=== PATIENT | female | born 1945 | race Two or more races ===

== ENCOUNTER 2018-02-07 08:03 | Outpatient (CLI) | payer OTHER ==
[~2018-02-07 08:03] MED LIST: FOSAMAX10 MG PO; INDERAL LA80 MG PO; MULTIVITAMIN1 TAB PO; SINGULAIR 5MG5 MG PO
== END 2018-02-07 08:13 | disposition home or self-care (01) ==
LOC: NUCLEAR 08:03
DX: I11.9 Hypertensive heart disease without heart failure (principal)

== ENCOUNTER 2018-10-30 07:47 | Outpatient (CLI) | payer OTHER | END 2018-10-30 07:58 | disposition home or self-care (01) | LOC: TOM 07:47 | DX: K63.5 Polyp of colon (principal) ==

== ENCOUNTER → 2018-11-08 | Outpatient (CLI) | payer OTHER | END | disposition home or self-care (01) | LOC: RAD 501 11:04 | DX: M25.562 Pain in left knee (principal) ==

== ENCOUNTER 2018-11-22 10:02 | Outpatient (CLI) | payer OTHER | END 2018-11-22 10:16 | disposition home or self-care (01) | LOC: MAMO-SONO 10:02 | DX: N60.11 Diffuse cystic mastopathy of right breast (principal); N60.12 Diffuse cystic mastopathy of left breast ==

== ENCOUNTER 2019-01-11 00:57 | Emergency (ER) | payer OTHER ==
[~2019-01-11] VITALS: Ht 154.9 cm; Wt 54.4 kg
[2019-01-11] MEDS ORDERED: DILTIAZEM ER180 M1 (01:04)
== END 2019-01-11 19:05 | disposition home or self-care (01) ==
LOC: ER 00:57
DX: N20.0 Calculus of kidney (principal); R10.31 Right lower quadrant pain

== ENCOUNTER → 2019-01-31 | Outpatient (CLI) | payer OTHER ==
[~2019-01-31] MED LIST changes: +DILTIAZEM ER180 M1
== END | disposition home or self-care (01) ==
LOC: SONOGRAMA 15:09 → RAD 15:09
DX: N20.1 Calculus of ureter (principal); N23 Unspecified renal colic

== ENCOUNTER 2019-03-26 15:15 | Outpatient (CLI) | payer OTHER | END 2019-03-26 15:23 | disposition home or self-care (01) | LOC: RAD 15:15 | DX: H25.012 Cortical age-related cataract, left eye (principal); Z98.42 Cataract extraction status, left eye ==

== ENCOUNTER 2019-08-29 01:36 | Emergency (ER) | payer OTHER ==
[~2019-08-29] VITALS: Ht 154.9 cm; Wt 54.0 kg
[2019-08-29] MEDS ORDERED: TENORMIN25 MG PO (17:32)
== END 2019-08-29 18:06 | disposition home or self-care (01) ==
LOC: ER 01:36 → CPU-OBS 01:41 → ER 01:41
DX: R07.89 Other chest pain (principal); I48.91 Unspecified atrial fibrillation; R00.2 Palpitations

== ENCOUNTER → 2020-05-01 | Outpatient (CLI) | payer OTHER ==
[~2020-05-01] MED LIST changes: +TENORMIN25 MG PO
== END | disposition home or self-care (01) ==
LOC: SONOGRAMA 07:15 → MAMO-SONO 05-02 15:15
PROVIDERS: ATTEND Internal Medicine
DX: E04.1 Nontoxic single thyroid nodule (principal); E03.8 Other specified hypothyroidism

== ENCOUNTER 2020-05-16 22:46 | Emergency (ER) | payer OTHER ==
[~2020-05-16] VITALS: Ht 154.9 cm; Wt 54.4 kg
[2020-05-16] MEDS ORDERED: PLAVIX75 MG (23:17)
[2020-05-16] MEDS ORDERED: TIROSINT25 MCG (23:17)
[2020-05-16] MEDS ORDERED: COZAAR25 MG (23:17)
[2020-05-17] MEDS ORDERED: INTESTINEX680 M2 PO (02:33)
[2020-05-17] MEDS ORDERED: AMOX1TAB5 PO (02:33)
== END 2020-05-17 03:00 | disposition home or self-care (01) ==
LOC: ER 22:46
DX: S61.220A Laceration with foreign body of right index finger without damage to nail, initial encounter (principal); W26.0XXA Contact with knife, initial encounter; Y93.89 Activity, other specified; Y92.090 Kitchen in other non-institutional residence as the place of occurrence of the external cause; Y99.8 Other external cause status

== ENCOUNTER 2020-05-26 10:16 | Outpatient (CLI) | payer OTHER ==
[~2020-05-26 10:16] MED LIST changes: +AMOX1TAB5 PO; +COZAAR25 MG; +INTESTINEX680 M2 PO; +PLAVIX75 MG; +TIROSINT25 MCG
== END 2020-05-26 10:18 | disposition home or self-care (01) ==
LOC: SONOGRAMA 10:16
PROVIDERS: ATTEND Pathology Anatomic Pathology & Clinical Pathology
DX: E04.2 Nontoxic multinodular goiter (principal)

== ENCOUNTER 2021-04-10 08:00 | Outpatient (CLI) | payer OTHER | END 2021-04-10 08:30 | disposition home or self-care (01) | LOC: PPH VACUNA 08:00 | DX: Z23 Encounter for immunization (principal) ==

== ENCOUNTER 2021-09-29 01:07 | Emergency (ER) | payer OTHER ==
[~2021-09-29] VITALS: Ht 157.5 cm; Wt 52.2 kg
== END 2021-09-29 03:43 | disposition home or self-care (01) ==
LOC: ER 01:07
DX: R00.2 Palpitations (principal); Z88.8 Allergy status to other drugs, medicaments and biological substances

== ENCOUNTER 2021-10-18 10:42 | Emergency (ER) | payer OTHER ==
[~2021-10-18] VITALS: Ht 154.9 cm; Wt 55.3 kg
== END 2021-10-18 13:09 | disposition home or self-care (01) ==
LOC: ER 10:42
DX: S20.212A Contusion of left front wall of thorax, initial encounter (principal); W19.XXXA Unspecified fall, initial encounter; Y92.9 Unspecified place or not applicable; I10 Essential (primary) hypertension; Z88.8 Allergy status to other drugs, medicaments and biological substances

== ENCOUNTER 2021-11-02 15:23 | Outpatient (CLI) | payer OTHER | END 2021-11-02 15:28 | disposition home or self-care (01) | LOC: RAD 15:23 | PROVIDERS: ATTEND Internal Medicine | DX: S29.9XXA Unspecified injury of thorax, initial encounter (principal) ==

== ENCOUNTER 2021-11-10 08:00 | Outpatient (CLI) | payer OTHER | END 2021-11-10 08:30 | disposition home or self-care (01) | LOC: PPH VACUNA 08:00 | PROVIDERS: ATTEND Emergency Medicine Pediatric Emergency Medicine | DX: Z23 Encounter for immunization (principal) ==

== ENCOUNTER 2021-11-12 07:50 | Emergency (ER) | payer OTHER ==
[~2021-11-12] VITALS: Ht 154.9 cm; Wt 54.4 kg
[2021-11-12] MEDS ORDERED: CARTIA XT240 MG (08:09)
[2021-11-12] MEDS ORDERED: TENORMIN50 M1 (08:10)
[2021-11-12] MEDS ORDERED: SIMVASTATIN (08:10)
== END 2021-11-12 14:47 | disposition home or self-care (01) ==
LOC: ER 07:50
DX: I48.91 Unspecified atrial fibrillation (principal); I10 Essential (primary) hypertension; Z88.6 Allergy status to analgesic agent; Z88.8 Allergy status to other drugs, medicaments and biological substances

== ENCOUNTER 2022-02-01 08:54 | Outpatient (CLI) | payer OTHER ==
[~2022-02-01 08:54] MED LIST changes: +CARTIA XT240 MG; +SIMVASTATIN; +TENORMIN50 M1
== END 2022-02-01 08:57 | disposition home or self-care (01) ==
LOC: NUCLEAR 08:54
PROVIDERS: ATTEND Internal Medicine
DX: I87.2 Venous insufficiency (chronic) (peripheral) (principal); Z88.6 Allergy status to analgesic agent; Z88.1 Allergy status to other antibiotic agents

== ENCOUNTER 2022-05-10 12:21 | Outpatient (CLI) | payer OTHER | END 2022-05-10 12:31 | disposition home or self-care (01) | LOC: PPH VACUNA 12:21 | PROVIDERS: ATTEND Emergency Medicine Pediatric Emergency Medicine | DX: Z23 Encounter for immunization (principal) ==

== ENCOUNTER 2022-05-20 15:18 | Outpatient (CLI) | payer OTHER | END 2022-05-20 15:24 | disposition home or self-care (01) | LOC: RAD 15:18 | PROVIDERS: ATTEND Physical Medicine & Rehabilitation | DX: M25.562 Pain in left knee (principal) ==

== ENCOUNTER 2022-07-21 13:53 | Outpatient (CLI) | payer OTHER | END 2022-07-21 14:08 | disposition home or self-care (01) | LOC: RAD 13:53 | PROVIDERS: ATTEND Physical Medicine & Rehabilitation | DX: N18.2 Chronic kidney disease, stage 2 (mild) (principal); M25.561 Pain in right knee | CPT/HCPCS: 73721 ==

== ENCOUNTER 2022-10-01 08:58 | Outpatient (CLI) | payer OTHER | END 2022-10-01 09:03 | disposition home or self-care (01) | LOC: NUCLEAR 08:58 | PROVIDERS: ATTEND Internal Medicine | DX: I10 Essential (primary) hypertension (principal); R60.9 Edema, unspecified ==

== ENCOUNTER 2022-10-01 10:31 | Outpatient (CLI) | payer OTHER | END 2022-10-01 10:34 | disposition home or self-care (01) | LOC: MAMO-SONO 10:31 | PROVIDERS: ATTEND Internal Medicine | DX: Z12.31 Encounter for screening mammogram for malignant neoplasm of breast (principal); N64.4 Mastodynia; N60.11 Diffuse cystic mastopathy of right breast ==

== ENCOUNTER 2023-06-13 16:14 | Outpatient (CLI) | payer OTHER | END 2023-06-13 16:23 | disposition home or self-care (01) | LOC: RAD 16:14 | PROVIDERS: ATTEND Internal Medicine | DX: S80.911A Unspecified superficial injury of right knee, initial encounter (principal) ==

== ENCOUNTER 2023-09-23 15:41 | Outpatient (CLI) | payer OTHER | END 2023-09-23 15:44 | disposition home or self-care (01) | LOC: RAD 15:41 | PROVIDERS: ATTEND Physical Medicine & Rehabilitation | DX: M25.561 Pain in right knee (principal) ==

== ENCOUNTER 2023-09-30 08:24 | Outpatient (CLI) | payer OTHER | END 2023-09-30 08:29 | disposition home or self-care (01) | LOC: TOM 08:24 | PROVIDERS: ATTEND Internal Medicine Cardiovascular Disease | DX: J32.8 Other chronic sinusitis (principal); R51.9 Headache, unspecified ==

== ENCOUNTER 2023-11-22 14:31 | Outpatient (CLI) | payer OTHER | END 2023-11-22 14:44 | disposition home or self-care (01) | LOC: MAMO-SONO 14:31 | PROVIDERS: ATTEND Internal Medicine | DX: N64.4 Mastodynia (principal); R92.8 Other abnormal and inconclusive findings on diagnostic imaging of breast; Z12.31 Encounter for screening mammogram for malignant neoplasm of breast ==

== ENCOUNTER 2024-02-13 14:03 | Outpatient (CLI) | payer OTHER | END 2024-02-13 14:11 | disposition home or self-care (01) | LOC: TOM 14:03 | DX: J32.0 Chronic maxillary sinusitis (principal) ==

== ENCOUNTER 2024-02-29 13:10 | Outpatient (CLI) | payer OTHER | END 2024-02-29 13:16 | disposition home or self-care (01) | LOC: TOM 13:10 | PROVIDERS: ATTEND Internal Medicine | DX: J44.1 Chronic obstructive pulmonary disease with (acute) exacerbation (principal) ==

== ENCOUNTER 2024-05-14 15:39 | Outpatient (CLI) | payer OTHER | END 2024-05-14 15:48 | disposition home or self-care (01) | LOC: RAD 15:39 | PROVIDERS: ATTEND Orthopaedic Surgery Adult Reconstructive Orthopaedic Surgery | DX: I11.9 Hypertensive heart disease without heart failure (principal) ==

== ENCOUNTER 2024-07-27 10:01 | Outpatient (CLI) | payer OTHER | END 2024-07-27 10:03 | disposition home or self-care (01) | LOC: NUCLEAR 10:01 | PROVIDERS: ATTEND Internal Medicine Cardiovascular Disease | DX: I82.409 Acute embolism and thrombosis of unspecified deep veins of unspecified lower extremity (principal); I87.2 Venous insufficiency (chronic) (peripheral); Z88.6 Allergy status to analgesic agent; Z88.1 Allergy status to other antibiotic agents ==

== ENCOUNTER 2024-09-07 15:21 | Outpatient (CLI) | payer OTHER | END 2024-09-07 15:24 | disposition home or self-care (01) | LOC: RAD 15:21 | PROVIDERS: ATTEND Orthopaedic Surgery Adult Reconstructive Orthopaedic Surgery | DX: M17.12 Unilateral primary osteoarthritis, left knee (principal); Z96.651 Presence of right artificial knee joint ==

== ENCOUNTER 2024-09-24 14:38 | Outpatient (CLI) | payer OTHER | END 2024-09-24 14:40 | disposition home or self-care (01) | LOC: RAD 14:38 | PROVIDERS: ATTEND Internal Medicine | DX: S92.902A Unspecified fracture of left foot, initial encounter for closed fracture (principal); M79.672 Pain in left foot ==

== ENCOUNTER → 2025-01-24 | Outpatient (CLI) | payer OTHER | END | disposition home or self-care (01) | LOC: RAD 08:05 | PROVIDERS: ATTEND Physical Medicine & Rehabilitation | DX: M25.512 Pain in left shoulder (principal) ==

== ENCOUNTER 2025-05-14 14:39 | Outpatient (CLI) | payer OTHER | END 2025-05-14 14:47 | disposition home or self-care (01) | LOC: TOM 14:39 | DX: J32.0 Chronic maxillary sinusitis (principal); Z88.6 Allergy status to analgesic agent; Z88.8 Allergy status to other drugs, medicaments and biological substances ==

== ENCOUNTER 2025-06-27 13:24 | Outpatient (CLI) | payer OTHER | END 2025-06-27 13:28 | disposition home or self-care (01) | LOC: SONOGRAMA 13:24 | PROVIDERS: ATTEND Physical Medicine & Rehabilitation | DX: M25.512 Pain in left shoulder (principal) ==